=== PATIENT | female | born 1995 ===

== ENCOUNTER 2017-05-19 02:07 | Inpatient (IN) | payer MEDICAID, OTHER ==
--- NOTE | 2017-05-19 02:13 | ED PDOC ---
Arrival/HPI - General Time Seen by Provider: 05/19/17 02:10 Historian: Patient, EMS (Transferred from [facility]) - History of Present Illness Narrative History of Present Illness (Text): 05/19/17 02:10 Ana Leone is a 22 year old female, whose past medical history includes bipolar disorder and depression, who presents to the Emergency department transferred from [facility] for depression and suicidal ideation tonight. 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 Patient denies any homicidal ideation, fever, chills, chest pain, shortness of breath, nausea, vomiting, diarrhea, urinary symptoms, back pain, neck pain, headache, dizziness, or any other complaints. Symptom Onset: Gradual Symptom Course: Unchanged Activities at Onset: Light Context: Home Past Medical History - Provider Review Nursing Documentation Reviewed: Yes Family/Social History - Physician Review Nursing Documentation Reviewed: Yes Family/Social History: Unknown Family HX Allergies/Home Meds Allergies/Adverse Reactions: Allergies No Known Allergies Allergy (Verified 05/19/17 02:10) Home Medications: Home Meds Medication Instructions Recorded Confirmed Risperidone [Risperdal] 0.5 mg PO HS 05/19/17 05/19/17 lamoTRIgine [LaMICtal] 25 mg PO DAILY 05/19/17 05/19/17 Review of Systems - Physician Review All systems were reviewed & negative as marked: Yes - Review of Systems Constitutional: Normal. absent: Fevers Eyes: Normal ENT: Normal Respiratory: Normal. absent: SOB, Cough Cardiovascular: Normal. absent: Chest Pain Gastrointestinal: Normal. absent: Abdominal Pain, Diarrhea, Nausea, Vomiting Genitourinary Female: Normal. absent: Dysuria, Frequency, Hematuria, Urine Output Changes Musculoskeletal: Normal. absent: Back Pain, Neck Pain Skin: Normal. absent: Rash Neurological: Normal. absent: Headache, Dizziness Endocrine: Normal Hemo/Lymphatic: Normal Psychiatric: Depression, Suicidal Ideation Physical Exam Vital Signs Reviewed: Yes Vital Signs Temp Pulse Resp BP Pulse Ox 05/19/17 02:10 98.3 F 94 H 18 117/75 100 Temperature: Afebrile Blood Pressure: Normal Pulse: Regular Respiratory Rate: Normal Appearance: Positive for: Well-Appearing, Non-Toxic, Comfortable Pain Distress: None Mental Status: Positive for: Alert and Oriented X 3 - Systems Exam Head: Present: Atraumatic, Normocephalic Pupils: Present: PERRL Extroacular Muscles: Present: EOMI Conjunctiva: Present: Normal Mouth: Present: Moist Mucous Membranes Neck: Present: Normal Range of Motion Respiratory/Chest: Present: Clear to Auscultation, Good Air Exchange. No: Respiratory Distress, Accessory Muscle Use Cardiovascular: Present: Regular Rate and Rhythm, Normal S1, S2. No: Murmurs Abdomen: Present: Normal Bowel Sounds. No: Tenderness, Distention, Peritoneal Signs Back: Present: Normal Inspection Upper Extremity: Present: Normal Inspection. No: Cyanosis, Edema Lower Extremity: Present: Normal Inspection. No: Edema Neurological: Present: GCS=15, CN II-XII Intact, Speech Normal Skin: Present: Warm, Dry, Normal Color. No: Rashes Psychiatric: Present: Alert, Oriented x 3, Normal Insight, Normal Concentration Medical Decision Making ED Course and Treatment: 05/19/17 02:10 Impression: 22 year old female transferred from [facility] for suicidal ideation and depression. 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 Pt admitted to [facility] for depression, suicidal ideation, and bipolar disorder under Dr. Bettencourt's service. - Scribe Statement The provider has reviewed the documentation as recorded by the Scribe Virginia Cifuentes All medical record entries made by the Scribe were at my direction and personally dictated by me. I have reviewed the chart and agree that the record accurately reflects my personal performance of the history, physical exam, medical decision making, and the department course for this patient. I have also personally directed, reviewed, and agree with the discharge instructions and disposition. Disposition/Present on Arrival - Present on Arrival Any Indicators Present on Arrival: No History of DVT/PE: No History of Uncontrolled Diabetes: No Urinary Catheter: No History of Decub. Ulcer: No History Surgical Site Infection Following: None - Disposition Have Diagnosis and Disposition been Completed?: Yes Diagnosis: Bipolar disorder with depression, Suicidal ideation Disposition: HOSPITALIZED Disposition Time: 02:28 Patient Plan: Admission Condition: STABLE
[2017-05-19 02:20] VITALS: O2SAT 100
[2017-05-19] MEDS ORDERED: Alum-Mag Hydrox-Simethicone Susp (30 mL) PO PRN (04:08)
[2017-05-19] MEDS ORDERED: Magnesium Hydroxide Susp 30 ml UD PO PRN (04:08)
--- NOTE | 2017-05-19 05:08 | PCM.BM ---
<Javier Lynch - Last Filed: 05/19/17 05:05> Treatment Plan Problems - Problems identified on initial assessmt Ineffective Coping Date Initiated: 05/19/17 Time Initiated: 03:05 Assessment reference: NA Status: Active Hopelessness/Helplessness Date Initiated: 05/19/17 Time Initiated: 03:05 Assessment reference: NA Status: Active Feelings of Worthlessness Date Initiated: 05/19/17 Time Initiated: 03:05 Assessment reference: NA Status: Active Body Image Disturbance Date Initiated: 05/19/17 Time Initiated: 03:05 Assessment reference: NA Status: Active Treatment assets and liabiliti Patient Assests: adapts well, cooperative, educated, resourceful, self-reliant, ADL independent, physically healthy, negotiates basic needs, financial stabiity , cognitively intact Patient Liabilities: financial problems, poor support system, relationship conflicts - Milieu Protocol Maintain good personal hygiene: daily Encourage regular showers, daily Remind patient to perform daily oral care, daily Assist patient to perform ADL's Conduct patient checks and document Observation sheet: Q15 minutes Maintain personal safety: every shift Educate patient to report safety concerns to staff, every shift Monitor environment for contraband/sharps Medication safety: Monitor for expected outcome, potential side effects: every shift, Assess barriers to learning: every shift, Assess readiness for medication education: every shift Discharge/Continuing Care - Education Needs Education Needs: Patient Medication, Patient Diagnosis/Disease Process, Patient Coping Skills, Patient Anger Management skills, Patient Community resources, Patient Activities of Daily Living, Patient Nutrition, Patient Health Practices/ Safety, Patient Personal Hygiene/Grooming, Patient Aftercare Safety Plan - Discharge Discharge Criteria: Tolerates medication w/o severe side effects, Free of Suicidal thoughts, Normal sleep pattern, Ability to care for self <Salome Bettencourt - Last Filed: 05/19/17 17:13> - Diagnosis (1) Bipolar disorder with depression Status: Acute Interventions: 05/19/17 17:13 Psychoeducation Psychopharmacology/adjustment of medications as needed/ monitoring possible side effects Monitor blood level of mood stabilizers Evaluate pt on daily basis Compliance with medications and follow up appointments Suicide and homicide risk assessment and prevention, coping strategies, safety plan Relapse prevention Reduction of symptoms Improve functional status Family involvement As outpatient: cognitive behavioral therapy <Verna Peace - Last Filed: 05/20/17 11:26> Family Contact Family contact: Patient agrees to contact Family contact name: Nelson Glynn([phone]) cousin Family contacted how many times per week?: 2 <Kecia Prakash - Last Filed: 05/20/17 15:29>
[2017-05-19 08:37] LABS: GLUCOSE,FASTING 88 mg/dL (65-110); HDL CHOLESTEROL 52 mg/dL (29-60)
[2017-05-19 08:53] LABS: LDL CHOLESTEROL 89 mg/dL (0-129)
[2017-05-19 09:46] LABS: BASO # 0.03 K/mm3 (0.0-2.0); BASO % 0.4 % (0.0-3.0); EOS # 0.1 (0.0-0.7); GRAN # 3.41 (1.4-6.5); GRAN % 48.2 % (50.0-68.0); HEMOGLOBIN 11.7 g/dL (12.0-16.0); LYMPH # 2.8 (1.2-3.4); LYMPH % 39.1 % (22.0-35.0); MEAN CELL VOLUME 94.8 fl (80.0-105.0); MEAN CORPUSCULAR HEMOGLOBIN 30.7 pg (25.0-35.0); MEAN CORPUSCULAR HGB CONC 32.4 g/dl (31.0-37.0); MONO # 0.7 (0.1-0.6); MONO % 10.3 % (1.0-6.0); RBC 3.81 10^6/uL (3.5-6.1); RED CELL DISTRIBUTION WIDTH 14.1 % (11.5-14.5); WHITE BLOOD COUNT 7.1 10^3/ul (4.5-11.0)
[2017-05-19 09:51] LABS: BLOOD UREA NITROGEN 13 mg/dL (7-21); CALCIUM 10.3 mg/dL (8.4-10.5); GFR AFRICAN-AMERICAN > 60; GFR NON-AFRICAN AMERICAN > 60
--- NOTE | 2017-05-19 17:13 | PCM.PSYCH ---
Initial Psychiatric Evaluation - Initial Psychiatric Evaluation Type of Admission: Voluntary Legal Status: Capacity (pt has a capacity to sign consent for treatment) Chief Complaint (in patient's own words): "I was not doing so well, I could not guarantee that I will not harm self, my family suggested me to come to the hospital" Patient's Reaction to Hospitalization: pt was admitted for evaluation of depressive symptoms, inability to function, pt was having suicidal thoughts, thinking to overdose on medications, cut wrists or walk into the traffic, pt denied intent or plan to do so. pt needs further evaluation and stabilization and observation. History of Present Illness and Precipitating Events: shortly pt is 22yo female with self reported h/o Bipolar disorder, denied previous psychiatric admissions, self reported h/o 4xsuicidal attempts, recently was discharged from [facility], attends [employer] ( [employer]), lives in dorm, was sent by her family for evaluation of worsening of depression, possible suicidal ideation either overdose/cut self/walk into the traffic. pt was taking meds sporadically, pt needs further evaluation and stabilization and observation. pt was seen and examined at the dinning area, good personal hygiene, good ADLs, constricted affect, speech was monotonic, low volume, underproductive. pt said she moved from [place] in January 2017, "adjustment was not easy ", pt said initially she staid with her older half sister, pt said "they were treating me like I am their mate", pt said that she moved into dorm later on. pt said she was attending the [facility] program which was for 30 days, pt reported she was not taking medications as prescribed "I was taking Risperdal and Lamictal when needed", pt was educated that she needs to take meds as prescribed, verbalized understanding. pt said that she was feeling "irritable, blunted, everything was like reid", pt said she was not able to get any pleasure, was feeling hopeless and "I had sense that there were no alternatives than just , I was feeling vulnerable, I was afraid that I might harm self, I was thinking to walk into traffic, overdose or cut wrists, I just thought about it but did not planned". pt said that she was feeling hopeless, "I tried to speak to my grandmother, she was very supportive and let my cousin know they both suggested me to come to the hospital". pt also called his mother who resides in [place] and asked her to stay with her, but "she got upset that I called her, she thinks that whenever kid reaches 20, needs to move out and be independent". of note pt requested no phone calls or visitation from cousin and grandmother which seems to be weird because pt said that they are very supportive. will explore more. pt denied using drugs, reported smoking sporadically, drinks "once in a while", pt reported h/o drugs cocaine at age of 19 used after bad brake up with her partner, last use november 2016, snorting. h/o irritability as per pt she was diagnosed with bipolar disorder by [facility], pt was taking lamictal and risprerdal, but was taking it sporadically. Past psych h/o: April 2016, "tried to cut myself but it was not sharp enough , then I thought who will clean up my mess because blood was everywhere, I stopped, cleaned everything and did not tell anyone", at age of 17 pt started to have cutting behavior, cut legs, burn self, self harm, pt also started to have eating problems pt was binge eating and then purging. 1st suicidal attempt 18yo overdose, September 2016 another overdose took ASA, kept it in secret, February 2017 OD on sleeping pills because of poor relationship with sister. medical issues: none family history: pt's twin sister at age of 17 OD valium, grandfather committed suicide by hanging self, father side of the family. 05/19/17 09:30 05/19/17 07:30 Lab Results 05/19/17 09:30: WBC 7.1, RBC 3.81, Hgb 11.7 L, Hct 36.1, MCV 94.8, MCH 30.7, MCHC 32.4, RDW 14.1, Plt Count 255, MPV 10.0, Gran % 48.2 L, Lymph % (Auto) 39.1 H, O'Brien % (Auto) 10.3 H, Eos % (Auto) 2.0, Baso % (Auto) 0.4, Gran # 3.41, Lymph # (Auto) 2.8, O'Brien # (Auto) 0.7 H, Eos # (Auto) 0.1, Baso # (Auto) 0.03 05/19/17 08:00: TSH 3rd Generation 2.87 05/19/17 07:30: RPR Nonreactive 05/19/17 07:30: Sodium 141, Potassium 4.3, Chloride 105, Carbon Dioxide 24, Anion Gap 16, BUN 13, Creatinine 0.5 L, Est GFR ( Amer) > 60, Est GFR ( Non-Af Amer) > 60, Random Glucose 88, Fasting Glucose 88, Calcium 10.3, Triglycerides 62, Cholesterol 159, LDL Cholesterol Direct 89, HDL Cholesterol 52 Vital Signs Temp Pulse Resp BP Pulse Ox 05/19/17 16:00 73 120/83 05/19/17 06:42 98.0 F 105 H 16 121/75 05/19/17 04:21 16 05/19/17 03:05 98 F 81 16 115/79 05/19/17 02:10 98.3 F 94 H 18 117/75 100 Current Medications: Active Medications Generic Name Dose Route Start Last Admin Trade Name Freq PRN Reason Stop Dose Admin Acetaminophen 650 mg 05/19/17 04:08 Tylenol 325mg Tab PO Q4 PRN Pain, Mild (1-3) Al Hydrox/Mg Hydrox/Simethicone 30 ml 05/19/17 04:08 Maalox Plus 30 Ml PO DAILY PRN Upset Stomach Famotidine 20 mg 05/19/17 22:00 Pepcid PO 1000,2200 JORGE Magnesium Hydroxide 30 ml 05/19/17 04:08 Milk Of Magnesia PO DAILY PRN Constipation Ondansetron HCl 2 mg 05/19/17 10:54 Zofran Tab PO Q8H PRN Nausea/Vomiting Past Psychiatric History - Past Psychiatric History Previous Treatment History: None Prior Professional Help: see HPI Prior Psychiatric Treatment: see HPI At what hospital: see HPI Duration: see HPI Nature of Treatment: see HPI Explanation of prior treatment: see HPI History of Abuse: see HPI History of ETOH/Drug Use: see HPI Pertinent Medical Hx (Current Medical&Sleep Prob, Allergies): Allergies Allergy/AdvReac Type Severity Reaction Status Date / Time cat dander Allergy ITCHING Verified 05/19/17 04:06 walnut Allergy ITCHING Verified 05/19/17 04:06 Risperidone [Risperdal] 0.5 mg PO HS 05/19/17 lamoTRIgine [LaMICtal] 25 mg PO DAILY 05/19/17 see HPI Review of Systems - Review of Systems Systems not reviewed;Unavailable: Acuity of Condition - EENT Eyes: As Per HPI Ears: As Per HPI Nose/Mouth/Throat: As Per HPI - Breasts Breasts: As Per HPI - Cardiovascular Cardiovascular: As Per HPI - Respiratory Respiratory: As Per HPI - Gastrointestinal Gastrointestinal: As Per HPI - Genitourinary Genitourinary: As Per HPI - Reproductive: Female Reproductive:Female: As Per HPI - Menstruation Menstruation: As Per HPI - Musculoskeletal Musculoskeletal: As Par HPI - Integumentary Integumentary: As Per HPI - Neurological Neurological: As Per HPI - Psychiatric Psychiatric: As Per HPI - Endocrine Endocrine: As Per HPI - Hematologic/Lymphatic Hematologic: As Per HPI Mental Status Examination - Personal Presentation Personal Presentation: Looks stated age - Affect Affect: Flat - Motor Activity Motor Activity: Psychomotor Retardation - Reliability in Providing Information Reliability in Providing Information: Fair - Speech Speech: Organized - Mood Mood: Depressed - Formal Thought Process Formal Thought Process: No Impairment - Obsessions/Compulsions Obsessions: Yes ("I am obsessed with food, then I purge") - Cognitive Functions Orientation: Person, Place, Situation Sensorium: Alert Attention/Concentration: Easily distracted Abstract Thinking: [place] Estimate of Intelligence: Average Judgement: Intact, as evidence by: Insight regarding need for hospitalization - Risk Risk: Suicidal, Self-mutilation, Diminished functioning - Strength & Assets Inventory Strength & Assets Inventory: Intelligence, Family support, Cooperative - Limitations Limitations: Other (h/o secretive suicidal attempts) DSM 5 DX - DSM 5 DSM 5 Diagnosis: r/o MDD r/o bipolar disorder r/o adjustment disorder with depressed mood r/o eating disorder (?bulimia) r/o borderline personality - Recommended/Plan of Treatment Treatment Recommendations and Plan of Treatment: Milieu/structure/supportive therapy Medical consult appreciated, see medical team note for more detailed info SW consultation for discharge plan and social issues Med management risperdal 0.5mg po bid for mood stabilizaton prozac 10mg po daily for depression and ?borderline personality Family involvement Follow up on labs Will monitor closely Pt was educated about risk/benefits and alternatives of medications, coping strategies (safety plan, suicide prevention), relapse prevention, importance of follow up with psychiatrist and therapist, stay away from drugs/alcohol/smoking Projected ELOS: 7days Prognosis: fair Discharge Plan and Discharge Criteria: Pt will be not depressed or manic, will be more hopeful, will be not psychotic or anxious, will be not having thoughts of harming self or others, will be tolerating medications well, will not have major side effects, will be able to function, will not pose threat to self or others. - Smoking Cessation Smoking Cessation Initiated: No Reason for not providing: pt reported smoking about 1cig a month, counseling provided
--- NOTE | 2017-05-19 18:25 | CP.PCM.CON ---
<Amarjit Silverman - Last Filed: 05/20/17 18:29> History of Present Illness - History of Present Illness History of Present Illness: Chief complaint: Depression, suicidal ideation HPI: Patient is a 22 year old female with a history of depression with suicide attempt and bulimia who presents with complaints from [facility] with complaints of depression. Patient states this is the first time she decided to seek help for her thoughts. She does not currently have any desire to end her life. Denies shortness of breath, chest pain, nausea, vomiting, diarrhea, fevers , chills, abdominal pain,headache, cough. PMD: Denies Psychiatrist: Does not recall name, however office is in [place], [place] Family history: non-contributory Social history: admits to social tobacco, alcohol use, denies illicit drug use Surgical history: denies Allergies: Cat dander, walnut Review of Systems - Constitutional Constitutional: absent: Anorexia, Chills, Headache, Increased Appetite - EENT Eyes: absent: Blurred Vision, Change in Vision Ears: absent: Ear Pain, Tinnitus Nose/Mouth/Throat: absent: Nasal Congestion, Nasal Discharge - Cardiovascular Cardiovascular: absent: Chest Pain, Dyspnea - Respiratory Respiratory: absent: Cough, Dyspnea, Wheezing - Gastrointestinal Gastrointestinal: absent: Abdominal Pain, Nausea, Vomiting - Genitourinary Genitourinary: absent: Dysuria, Nocturia - Musculoskeletal Musculoskeletal: absent: Back Pain, Numbness - Integumentary Integumentary: absent: Change in Hair, Lesions - Neurological Neurological: absent: Dizziness, Tremor - Psychiatric Psychiatric: Depression. absent: Anxiety - Endocrine Endocrine: absent: Fatigue, Polyuria Past Patient History - Past Social History Smoking Status: Light Smoker < 10 Cigarettes Daily - CARDIAC Hx Cardiac Disorders: No - PULMONARY Hx Respiratory Disorders: No - NEUROLOGICAL Hx Neurological Disorder: No - HEENT Hx HEENT Problems: No - RENAL Hx Chronic Kidney Disease: No - ENDOCRINE/METABOLIC Hx Endocrine Disorders: No - HEMATOLOGICAL/ONCOLOGICAL Hx Blood Disorders: No - INTEGUMENTARY Hx Dermatological Problems: No - MUSCULOSKELETAL/RHEUMATOLOGICAL Hx Musculoskeletal Disorders: No - GASTROINTESTINAL Hx Gastrointestinal Disorders: No - GENITOURINARY/GYNECOLOGICAL Hx Genitourinary Disorders: No - PSYCHIATRIC Hx Bipolar Disorder: Yes Hx Depression: Yes Hx Substance Use: Yes (Cocaine last used in 2016) - SURGICAL HISTORY Hx Surgeries: No Meds Allergies/Adverse Reactions: Allergies Allergy/AdvReac Type Severity Reaction Status Date / Time cat dander Allergy ITCHING Verified 05/19/17 04:06 walnut Allergy ITCHING Verified 05/19/17 04:06 - Medications Medications: Current Medications Acetaminophen (Tylenol 325mg Tab) 650 mg PO Q4 PRN PRN Reason: Pain, Mild (1-3) Al Hydrox/Mg Hydrox/Simethicone (Maalox Plus 30 Ml) 30 ml PO DAILY PRN PRN Reason: Upset Stomach Famotidine (Pepcid) 20 mg PO 1000,2200 [facility] Fluoxetine HCl (Prozac) 10 mg PO DAILY [facility] Last Admin: 05/19/17 12:59 Dose: 10 mg Magnesium Hydroxide (Milk Of Magnesia) 30 ml PO DAILY PRN PRN Reason: Constipation Ondansetron HCl (Zofran Tab) 2 mg PO Q8H PRN PRN Reason: Nausea/Vomiting Risperidone (Risperdal Tab) 0.5 mg PO BID JORGE PRN Reason: Protocol Last Admin: 05/19/17 17:16 Dose: 0.5 mg Zaleplon (Sonata) 5 mg PO HS PRN PRN Reason: Insomnia Physical Exam - Constitutional Appears: Non-toxic, No Acute Distress - Head Exam Head Exam: ATRAUMATIC, NORMAL INSPECTION, NORMOCEPHALIC - Eye Exam Eye Exam: EOMI, Normal appearance - ENT Exam ENT Exam: Mucous Membranes Moist, Normal Exam - Neck Exam Neck exam: Positive for: Normal Inspection - Respiratory Exam Respiratory Exam: Clear to Auscultation Bilateral, NORMAL BREATHING PATTERN. absent: Rhonchi, Wheezes - Cardiovascular Exam Cardiovascular Exam: REGULAR RHYTHM, +S1, +S2 - GI/Abdominal Exam GI & Abdominal Exam: Normal Bowel Sounds, Soft - Extremities Exam Extremities exam: Positive for: normal inspection - Back Exam Back exam: NORMAL INSPECTION - Neurological Exam Neurological exam: Alert, CN II-XII Intact, Oriented x3 - Psychiatric Exam Psychiatric exam: Depressed - Skin Skin Exam: Intact, Normal Color, Warm Results - Vital Signs Recent Vital Signs: Last Vital Signs Temp 98.0 F 05/19/17 06:42 Pulse 73 05/19/17 16:00 Resp 16 05/19/17 06:42 BP 120/83 05/19/17 16:00 Pulse Ox 100 05/19/17 02:10 - Labs Result Diagrams: 05/19/17 09:30 05/19/17 07:30 Labs: Laboratory Results - last 24 hr 05/19/17 05/19/17 05/19/17 07:30 07:30 08:00 WBC RBC Hgb Hct MCV MCH MCHC RDW Plt Count MPV Gran % Lymph % (Auto) [place] % (Auto) Eos % (Auto) Baso % (Auto) Gran # Lymph # (Auto) [place] # (Auto) Eos # (Auto) Baso # (Auto) Sodium 141 Potassium 4.3 Chloride 105 Carbon Dioxide 24 Anion Gap 16 BUN 13 Creatinine 0.5 L Est GFR ( Amer) > 60 Est GFR (Non-Af Amer) > 60 Random Glucose 88 Fasting Glucose 88 Calcium 10.3 Triglycerides 62 Cholesterol 159 LDL Cholesterol Direct 89 HDL Cholesterol 52 TSH 3rd Generation 2.87 RPR Nonreactive 05/19/17 09:30 WBC 7.1 RBC 3.81 Hgb 11.7 L Hct 36.1 MCV 94.8 MCH 30.7 MCHC 32.4 RDW 14.1 Plt Count 255 MPV 10.0 Gran % 48.2 L Lymph % (Auto) 39.1 H [place] % (Auto) 10.3 H Eos % (Auto) 2.0 Baso % (Auto) 0.4 Gran # 3.41 Lymph # (Auto) 2.8 [place] # (Auto) 0.7 H Eos # (Auto) 0.1 Baso # (Auto) 0.03 Sodium Potassium Chloride Carbon Dioxide Anion Gap BUN Creatinine Est GFR ( Amer) Est GFR (Non-Af Amer) Random Glucose Fasting Glucose Calcium Triglycerides Cholesterol LDL Cholesterol Direct HDL Cholesterol TSH 3rd Generation RPR Assessment & Plan - Assessment and Plan (Free Text) Assessment: 22 year old female with bulimia nervosa, depression, and suicidal ideation. Plan: Medical clearance - patient is cleared from a medical standpoint. - no lab abnormalities. - Patient counseled on effects bulimia may have on body regarding electrolytes, dental hygiene. - [employer] consulted. - patient advised to follow up with primary care physician within 1 week of discharge. <Lazaro Carter - Last Filed: 05/20/17 18:38> Meds - Medications Medications: Current Medications Acetaminophen (Tylenol 325mg Tab) 650 mg PO Q4 PRN PRN Reason: Pain, Mild (1-3) Al Hydrox/Mg Hydrox/Simethicone (Maalox Plus 30 Ml) 30 ml PO DAILY PRN PRN Reason: Upset Stomach Famotidine (Pepcid) 20 mg PO 1000,2200 J[facility] Last Admin: 05/20/17 10:04 Dose: 20 mg Fluoxetine HCl (Prozac) 20 mg PO DAILY JOR[facility] Magnesium Hydroxide (Milk Of Magnesia) 30 ml PO DAILY PRN PRN Reason: Constipation Ondansetron HCl (Zofran Tab) 2 mg PO Q8H PRN PRN Reason: Nausea/Vomiting Risperidone (Risperdal Tab) 0.5 mg PO BID JORGE PRN Reason: Protocol Last Admin: 05/20/17 16:23 Dose: 0.5 mg Zaleplon (Sonata) 5 mg PO HS PRN PRN Reason: Insomnia Last Admin: 05/19/17 21:26 Dose: 5 mg Results - Vital Signs Recent Vital Signs: Last Vital Signs Temp 98.1 F 05/20/17 07:35 Pulse 75 05/20/17 15:00 Resp 20 05/20/17 07:35 BP 104/71 05/20/17 15:00 Pulse Ox 100 05/19/17 02:10 - Labs Result Diagrams: 05/19/17 09:30 05/19/17 07:30 Attending/Attestation - Attestation I have personally seen and examined this patient.: Yes I have fully participated in the care of the patient.: Yes I have reviewed all pertinent clinical information: Yes Notes (Text): 05/20/17 18:37 Attending note; Patient seen and examined with resident in psychiatric floor. Patient is a 22-year-old female admitted with suicidal ideation. Currently patient is stable. Labs reviewed. History of bulimia. Denies any vomiting. Dietitian evaluation requested. Patient is strongly advised to follow-up with PMD of choice upon discharge. Needs close psychiatric follow-up. Patient is medically stable. Please reconsult as needed. Thank you for the courtesy of this consultation.
--- NOTE | 2017-05-20 15:21 | PCM.PYCHPN ---
Psychiatric Progress Note - Psychiatric Progress Note Patient seen today, length of contact: 30 minutes Patient Chief Complaint: "I M feeling little bit better" Problems Identified/Issues Discussed: Suicide/ homicide prevention, past psychiatric h/o, current psychiatric symptoms , medical problems, risk/benefits and alternatives of medications, medications compliance, coping strategies, substance abuse h/o, relapse prevention, importance of follow up with psychiatrist and therapist, discharge plan. Medical Problems: medical consult appreciated, see notes for more detailed information Diagnostic Results: 05/19/17 09:30 05/19/17 07:30 Lab Results 05/19/17 09:30: WBC 7.1, RBC 3.81, Hgb 11.7 L, Hct 36.1, MCV 94.8, MCH 30.7, MCHC 32.4, RDW 14.1, Plt Count 255, MPV 10.0, Gran % 48.2 L, Lymph % (Auto) 39.1 H, [place] % (Auto) 10.3 H, Eos % (Auto) 2.0, Baso % (Auto) 0.4, Gran # 3.41, Lymph # (Auto) 2.8, [place] # (Auto) 0.7 H, Eos # (Auto) 0.1, Baso # (Auto) 0.03 05/19/17 08:00: TSH 3rd Generation 2.87 05/19/17 07:30: RPR Nonreactive 05/19/17 07:30: Sodium 141, Potassium 4.3, Chloride 105, Carbon Dioxide 24, Anion Gap 16, BUN 13, Creatinine 0.5 L, Est GFR ( Amer) > 60, Est GFR ( Non-Af Amer) > 60, Random Glucose 88, Fasting Glucose 88, Calcium 10.3, Triglycerides 62, Cholesterol 159, LDL Cholesterol Direct 89, HDL Cholesterol 52 Vital Signs Temp Pulse Resp BP Pulse Ox 05/20/17 07:35 98.1 F 85 20 111/68 05/19/17 16:00 73 120/83 05/19/17 06:42 98.0 F 105 H 16 121/75 05/19/17 04:21 16 05/19/17 03:05 98 F 81 16 115/79 05/19/17 02:10 98.3 F 94 H 18 117/75 100 DSM 5 Symptoms Update: shortly pt is 22yo female with self reported h/o Bipolar disorder, denied previous psychiatric admissions, self reported h/o 4xsuicidal attempts, recently was discharged from [facility] for 30 days, attends [employer] ( [employer] [facility] [facility]), lives in dorm, was sent by her family for evaluation of worsening of depression, possible suicidal ideation either overdose/cut self/walk into the traffic. pt was taking meds sporadically, pt needs further evaluation and stabilization and observation. pt was seen and examined at the treatment team meeting, patient presented to be depressed, with ADLs, anxious. Patient reported that she feels "little bit better", patient reported that her sleep improved, at the same time patient reported that she still continues feeling depressed, hopeless. No eating problems, patient did not have any binge eating or purging behavior while she is with us. Patient tolerates medications well, no side effects observed or reported, aims 0 , no EPS. DSM 5 Diagnosis: r/o MDD r/o bipolar disorder r/o adjustment disorder with depressed mood r/o eating disorder (?bulimia) r/o borderline personality Medication Change: Yes (Prozac was increased to 20 mg) Medical Record Reviewed: Yes Consults ordered or reviewed: medical consult appreciated Mental Status Examination - Cognitive Function Orientation: Person, Place, Situation Memory: Intact Attention: Poor Concentration: Poor Association: WNL Fund of Knowledge: WNL - Mood Mood: Depressed, Anxious - Affect Affect: Constricted - Speech Speech: Appropriate - Formal Thought Process Formal Thought Process: No Impairment - Suicidal Ideation Suicidal Ideation: No - Homicidal Ideation Homicidal Ideation: No Goal/Treatment Plan - Goal/Treatment Plan Need for Continued Stay: Remain at risks for inpatient hospitalization, Severe depression anxiety, Discharge may exacerbated symptoms, Severe functional impairment Progress Toward Problem(s) and Goals/Treatment Plan: Milieu/structure/supportive therapy Medical consult appreciated, see medical team note for more detailed info SW consultation for discharge plan and social issues Med management risperdal 0.5mg po bid for mood stabilizaton prozac 20mg po daily for depression and ?borderline personality Family involvement Follow up on labs Will monitor closely Pt was educated about risk/benefits and alternatives of medications, coping strategies (safety plan, suicide prevention), relapse prevention, importance of follow up with psychiatrist and therapist, stay away from drugs/alcohol/smoking
--- NOTE | 2017-05-21 09:20 | PCM.PYCHPN ---
Psychiatric Progress Note - Psychiatric Progress Note Patient seen today, length of contact: 25 minutes Patient Chief Complaint: depressed and hopeless Problems Identified/Issues Discussed: I reviewed assessment and recent notes. I met with patient at bedside. She is fairly groomed and cooperative. Oriented x3 and focus is good. Patient indicates that she is feeling better but still remains depressed and hopeless. Feels safe on the unit and denies SI/HI. She denies perceptual disturbance and thought process is coherent. Responses are relevant to questioning. Staff notes indicate that patient is visible on the unit and goes to groups however she is minimally social with other patients. Appears withdrawn and depressed. There were no behavioral issues overnight Diagnostic Results: r/o MDD r/o bipolar disorder r/o adjustment disorder with depressed mood r/o eating disorder (?bulimia) r/o borderline personality Medication Change: Yes (Prozac was increased to 20 mg) Medical Record Reviewed: Yes Mental Status Examination - Cognitive Function Orientation: Person, Place, Situation Memory: Intact Attention: Poor Concentration: Poor Association: WNL Fund of Knowledge: WNL - Mood Mood: Depressed, Anxious - Affect Affect: Constricted - Speech Speech: Appropriate - Formal Thought Process Formal Thought Process: No Impairment - Suicidal Ideation Suicidal Ideation: No - Homicidal Ideation Homicidal Ideation: No Goal/Treatment Plan - Goal/Treatment Plan Need for Continued Stay: Remain at risks for inpatient hospitalization, Severe depression anxiety, Discharge may exacerbated symptoms, Severe functional impairment Progress Toward Problem(s) and Goals/Treatment Plan: c/w current tx and plan No new weekend labs thus far Vitals reviewed and noted below: Selected Entries 05/21/17 08:17 Temperature 97.5 F L Pulse Rate 81 Respiratory 18 Rate Blood Pressure 99/59 L
--- NOTE | 2017-05-22 09:18 | PCM.PYCHPN ---
Psychiatric Progress Note - Psychiatric Progress Note Patient seen today, length of contact: 25 minutes Patient Chief Complaint: depressed and hopeless Problems Identified/Issues Discussed: I reviewed recent notes and met with patient at bedside. She is fairly groomed and cooperative. Oriented x3 and focus is good. Patient Indicates that she is " I am fine but still depressed". Denies hopelessness, SI/HI. She continues to deny perceptual disturbance and thought process is coherent. Responses are relevant to questioning. Staff notes indicate that patient is visible on the unit and goes to groups however she is minimally social with other patients. Appears withdrawn and depressed. There were no behavioral issues over the weekend. Diagnostic Results: r/o MDD r/o bipolar disorder r/o adjustment disorder with depressed mood r/o eating disorder (?bulimia) r/o borderline personality Medication Change: Yes (Prozac was increased to 20 mg) Medical Record Reviewed: Yes Mental Status Examination - Cognitive Function Orientation: Person, Place, Situation Memory: Intact Attention: Poor Concentration: Poor Association: WNL Fund of Knowledge: WNL - Mood Mood: Depressed, Anxious - Affect Affect: Constricted - Speech Speech: Appropriate - Formal Thought Process Formal Thought Process: No Impairment - Suicidal Ideation Suicidal Ideation: No - Homicidal Ideation Homicidal Ideation: No Goal/Treatment Plan - Goal/Treatment Plan Need for Continued Stay: Remain at risks for inpatient hospitalization, Severe depression anxiety, Discharge may exacerbated symptoms, Severe functional impairment Progress Toward Problem(s) and Goals/Treatment Plan: c/w current tx and plan No new weekend labs Vitals reviewed and noted below: 05/22/17 07:39 Temperature 98.1 F Pulse Rate 98 H Respiratory 20 Rate Blood Pressure 105/74
--- NOTE | 2017-05-23 15:46 | PCM.PYCHPN ---
Psychiatric Progress Note - Psychiatric Progress Note Patient seen today, length of contact: 30min Patient Chief Complaint: "I am not planning to go back to college, first I want to start feeling better" Problems Identified/Issues Discussed: Suicide/ homicide prevention, past psychiatric h/o, current psychiatric symptoms , medical problems, risk/benefits and alternatives of medications, medications compliance, coping strategies, substance abuse h/o, relapse prevention, importance of follow up with psychiatrist and therapist, discharge plan. Medical Problems: medical consult appreciated, see notes for more detailed information Diagnostic Results: 05/19/17 09:30 05/19/17 07:30 Lab Results 05/19/17 09:30: WBC 7.1, RBC 3.81, Hgb 11.7 L, Hct 36.1, MCV 94.8, MCH 30.7, MCHC 32.4, RDW 14.1, Plt Count 255, MPV 10.0, Gran % 48.2 L, Lymph % (Auto) 39.1 H, [place] % (Auto) 10.3 H, Eos % (Auto) 2.0, Baso % (Auto) 0.4, Gran # 3.41, Lymph # (Auto) 2.8, [place] # (Auto) 0.7 H, Eos # (Auto) 0.1, Baso # (Auto) 0.03 05/19/17 08:00: TSH 3rd Generation 2.87 05/19/17 07:30: RPR Nonreactive 05/19/17 07:30: Sodium 141, Potassium 4.3, Chloride 105, Carbon Dioxide 24, Anion Gap 16, BUN 13, Creatinine 0.5 L, Est GFR ( Amer) > 60, Est GFR ( Non-Af Amer) > 60, Random Glucose 88, Fasting Glucose 88, Calcium 10.3, Triglycerides 62, Cholesterol 159, LDL Cholesterol Direct 89, HDL Cholesterol 52 Vital Signs Temp Pulse Resp BP Pulse Ox 05/20/17 07:35 98.1 F 85 20 111/68 05/19/17 16:00 73 120/83 05/19/17 06:42 98.0 F 105 H 16 121/75 05/19/17 04:21 16 05/19/17 03:05 98 F 81 16 115/79 05/19/17 02:10 98.3 F 94 H 18 117/75 100 Temp Pulse Resp BP Pulse Ox 97.7 F 98 H 20 118/73 100 05/23/17 07:19 05/23/17 07:19 05/23/17 07:19 05/23/17 07:19 05/19/17 02:10 DSM 5 Symptoms Update: shortly pt is 22yo female with self reported h/o Bipolar disorder, denied previous psychiatric admissions, self reported h/o 4xsuicidal attempts, recently was discharged from [facility] for 30 days, attends [employer] ( [employer]), lives in dorm, was sent by her family for evaluation of worsening of depression, possible suicidal ideation either overdose/cut self/walk into the traffic. pt was taking meds sporadically, pt needs further evaluation and stabilization and observation. pt was seen and examined at the treatment team meeting, patient presented to be less depressed, with good ADLs, less anxious. Patient reported that she feels "better, I think medications are working well", pt said that her family is going to help her, pt said her grandmother and her aunt are willing to accept her and help her now. Pt said she is not planning to go to the college because she wants to concentrate on her mental problems. pt denied thoughts of harming self or others. pt denied psychotic symptoms, anxiety is under control. pt has good appetite and sleep "I was able to sleep with no meds", pt said that her mind is not racing and meds seems to be effective. Patient tolerates medications well, no side effects observed or reported, aims 0 , no EPS. DSM 5 Diagnosis: r/o MDD r/o bipolar disorder r/o adjustment disorder with depressed mood r/o eating disorder (?bulimia) r/o borderline personality Medication Change: No Medical Record Reviewed: Yes Consults ordered or reviewed: medical consult appreciated Mental Status Examination - Cognitive Function Orientation: Person, Place, Situation Memory: Intact Attention: Poor (some improvement) Concentration: Poor (some improvement) Association: WNL Fund of Knowledge: WNL - Mood Mood: Depressed ("I feel better"), Anxious ("I feel okay") - Affect Affect: Constricted (but reactive, mood congruent) - Speech Speech: Appropriate - Formal Thought Process Formal Thought Process: No Impairment - Suicidal Ideation Suicidal Ideation: No - Homicidal Ideation Homicidal Ideation: No Goal/Treatment Plan - Goal/Treatment Plan Need for Continued Stay: Remain at risks for inpatient hospitalization, Severe depression anxiety, Discharge may exacerbated symptoms, Severe functional impairment Progress Toward Problem(s) and Goals/Treatment Plan: Milieu/structure/supportive therapy Medical consult appreciated, see medical team note for more detailed info SW consultation for discharge plan and social issues Med management risperdal 0.5mg po bid for mood stabilizaton prozac 20mg po daily for depression and ?borderline personality Family involvement Follow up on labs Will monitor closely Pt was educated about risk/benefits and alternatives of medications, coping strategies (safety plan, suicide prevention), relapse prevention, importance of follow up with psychiatrist and therapist, stay away from drugs/alcohol/smoking Estimated Date of D/C: 05/24/17
[2017-05-24 06:39] VITALS: BP 129/75; PULSE 100; RESP 16; TEMP 98.2
--- NOTE | 2017-05-24 09:20 | PCM.PYCHDC ---
Mental Status Examination - Mental Status Examination Orientation: Person, Place, Situation, Time Memory: Intact Mood: Neutral Affect: Broad (and mood congruent) Speech: Appropriate Attention: WNL Concentration: WNL Association: WNL Fund of Knowledge: WNL Formal Thought Process: No Impairment Description of patient's judgement and insight: Pt has improved insight into mental and medical illness, pt was compliant with medications and unit rules and regulations, pt was going to groups, was calm, cooperative, socially appropriate, no behavioral incidents, no agitation, no aggression. Psychotic Thoughts and Behaviors: Pt denied v/a/t hallucinations, denied paranoid ideations, pt does not appear to be psychotic, and thought process is goal directed. Suicidal Ideation: No Current Homicidal Ideation?: No Plan: pt adamantly denied thoughts of harming self or others denied intent or plan. Discharge Summary - Discharge Note Reason for Hospitalization: pt was admitted for evaluation of depressive symptoms, inability to function, pt was having suicidal thoughts, thinking to overdose on medications, cut wrists or walk into the traffic, pt denied intent or plan to do so. pt needed further evaluation, meds adjustment, stabilization. Psychiatric History (includes Medical, Family, Personal Hx): see HPI Laboratory Data: 05/19/17 09:30 05/19/17 07:30 Lab Results 05/19/17 09:30: WBC 7.1, RBC 3.81, Hgb 11.7 L, Hct 36.1, MCV 94.8, MCH 30.7, MCHC 32.4, RDW 14.1, Plt Count 255, MPV 10.0, Gran % 48.2 L, Lymph % (Auto) 39.1 H, Falls % (Auto) 10.3 H, Eos % (Auto) 2.0, Baso % (Auto) 0.4, Gran # 3.41, Lymph # (Auto) 2.8, Falls # (Auto) 0.7 H, Eos # (Auto) 0.1, Baso # (Auto) 0.03 05/19/17 08:00: TSH 3rd Generation 2.87 05/19/17 07:30: RPR Nonreactive 05/19/17 07:30: Sodium 141, Potassium 4.3, Chloride 105, Carbon Dioxide 24, Anion Gap 16, BUN 13, Creatinine 0.5 L, Est GFR ( Amer) > 60, Est GFR ( Non-Af Amer) > 60, Random Glucose 88, Fasting Glucose 88, Calcium 10.3, Triglycerides 62, Cholesterol 159, LDL Cholesterol Direct 89, HDL Cholesterol 52 Vital Signs Temp Pulse Resp BP Pulse Ox 05/24/17 06:38 98.2 F 100 H 16 129/75 05/23/17 16:00 75 104/62 05/23/17 07:19 97.7 F 98 H 20 118/73 05/22/17 21:52 81 108/64 05/22/17 07:39 98.1 F 98 H 20 105/74 05/21/17 15:00 85 106/67 05/21/17 08:17 97.5 F L 81 18 99/59 L 05/20/17 15:00 75 104/71 05/20/17 07:35 98.1 F 85 20 111/68 05/19/17 16:00 73 120/83 05/19/17 06:42 98.0 F 105 H 16 121/75 05/19/17 04:21 16 05/19/17 03:05 98 F 81 16 115/79 05/19/17 02:10 98.3 F 94 H 18 117/75 100 Consultations:: List each consultation separately and include: 1. Reason for request. 2. Findings. 3. Follow-up Consultations: medical consult appreciated please see notes for more detailed information Summary of Hospital Course include:: 1. Description of specific treatment plan utilized for patients during their course of treatmen. 2. Summarize the time- course for resolution of acute symptoms and/or regressed behaviors. 3. Describe issues identified and worked on during hospitalization. 4. Describe medication utilized. 5. Describe medical problems identified and treated. 6. Reassessment of suicide risk Summary of Hospital Course: shortly pt is 22yo female with self reported h/o Bipolar disorder, denied previous psychiatric admissions, self reported h/o 4xsuicidal attempts, recently was discharged from [facility] for [facility], attends [employer] ( [employer] lives in dorm, was sent by her family for evaluation of worsening of depression, possible suicidal ideation either overdose/cut self/walk into the traffic. pt was taking meds sporadically, pt needs further evaluation and stabilization and observation. at the time of admission pt presented to be depressed, hopeless, had thoughts of harming self, but no intent or plan. pt said she moved from [place] in January 2017, "adjustment was not easy ", pt said initially she staid with her older half sister, pt said "they were treating me like I am their mate", pt said that she moved into dorm later on. pt said she was attending the [employer] program which was for 30 days, pt reported she was not taking medications as prescribed "I was taking Risperdal and Lamictal when needed", pt was educated that she needs to take meds as prescribed, verbalized understanding. pt said that she was feeling "irritable, blunted, everything was like reid", pt said she was not able to get any pleasure, was feeling hopeless and "I had sense that there were no alternatives than just , I was feeling vulnerable, I was afraid that I might harm self, I was thinking to walk into traffic, overdose or cut wrists, I just thought about it but did not planned". pt said that she was feeling hopeless, "I tried to speak to my grandmother, she was very supportive and let my cousin know they both suggested me to come to the hospital". pt also called his mother who resides in [place] and asked her to stay with her, but "she got upset that I called her, she thinks that whenever kid reaches 20, needs to move out and be independent". of note pt requested no phone calls or visitation from cousin and grandmother which seems to be weird because pt said that they are very supportive. will explore more. pt denied using drugs, reported smoking sporadically, drinks "once in a while", pt reported h/o drugs cocaine at age of 19 used after bad brake up with her partner, last use november 2016, snorting. h/o irritability as per pt she was diagnosed with bipolar disorder by [facility], pt was taking lamictal and risprerdal, but was taking it sporadically. Past psych h/o: April 2016, "tried to cut myself but it was not sharp enough , then I thought who will clean up my mess because blood was everywhere, I stopped, cleaned everything and did not tell anyone", at age of 17 pt started to have cutting behavior, cut legs, burn self, self harm, pt also started to have eating problems pt was binge eating and then purging. 1st suicidal attempt 18yo overdose, September 2016 another overdose took ASA, kept it in secret, February 2017 OD on sleeping pills because of poor relationship with sister. medical issues: none family history: pt's twin sister at age of 15 OD valium, grandfather committed suicide by hanging self, father side of the family. 05/19/17 09:30 05/19/17 07:30 Lab Results 05/19/17 09:30: WBC 7.1, RBC 3.81, Hgb 11.7 L, Hct 36.1, MCV 94.8, MCH 30.7, MCHC 32.4, RDW 14.1, Plt Count 255, MPV 10.0, Gran % 48.2 L, Lymph % (Auto) 39.1 H, Falls % (Auto) 10.3 H, Eos % (Auto) 2.0, Baso % (Auto) 0.4, Gran # 3.41, Lymph # (Auto) 2.8, Falls # (Auto) 0.7 H, Eos # (Auto) 0.1, Baso # (Auto) 0.03 05/19/17 08:00: TSH 3rd Generation 2.87 05/19/17 07:30: RPR Nonreactive 05/19/17 07:30: Sodium 141, Potassium 4.3, Chloride 105, Carbon Dioxide 24, Anion Gap 16, BUN 13, Creatinine 0.5 L, Est GFR ( Amer) > 60, Est GFR ( Non-Af Amer) > 60, Random Glucose 88, Fasting Glucose 88, Calcium 10.3, Triglycerides 62, Cholesterol 159, LDL Cholesterol Direct 89, HDL Cholesterol 52 Vital Signs Temp Pulse Resp BP Pulse Ox 05/19/17 16:00 73 120/83 05/19/17 06:42 98.0 F 105 H 16 121/75 05/19/17 04:21 16 05/19/17 03:05 98 F 81 16 115/79 05/19/17 02:10 98.3 F 94 H 18 117/75 100 pt was stabilized on the following medications: prozac 20mg po daily for depression, anxiety risperdal 0.5mg po bid for mood stabilization pt tolerated meds well, no side effects observed or reported, AIMS 0, no EPS. pt's family wants to help her, pt will stay with her grandmother and her aunt, pt does not want to go back to college, wants to feel better first. Over the course of this hospitalization pt was attending groups, pt also had medication management, had therapeutic milieu. Overall pt improved significantly, pt's affect became brighter, pt was less depressed, has realistic future oriented plans, pt also does not appear to be psychotic, or anxious, pt was socially appropriate, no behavioral issues, pts insight improved as well and soon pt deemed to be ready for discharge. At the time of the discharge pt denied been depressed, denied thoughts of harming self or others, denied psychotic symptoms, and pt does not appeared to be psychotic, denied been anxious, pt is not in imminent danger to self or others, will be following up at IOP, information about follow up appointment, time and address provided to the pt, it is patient responsibility to follow up with outpatient clinic, PMD as well as specialists (see SW note for more detailed information). In case pt will need to obtain results of studies pending at discharge pt was provided with contact information of Psychiatric Inpatient unit [phone] as well as Medical Record Department [phone]. pt does not use any drugs, does not smoke pt was provided with prescriptions for all of medications (please see medication reconciliation form) Pt was educated about safety plan in case of worsening of symptoms or in case of suicidal or homicidal ideation call 911 or go to the nearest ER, also was educated to take meds as prescribed and stay away from drugs, pt verbalized understanding. - Diagnosis (1) Bipolar disorder with depression Current Visit: Yes Status: Acute Priority: Medium - Final Diagnosis (DSM 5) Condition upon Discharge: GOOD Disposition: HOME/ ROUTINE Follow-up Treatment Plan: At the time of the discharge pt denied been depressed, denied thoughts of harming self or others, denied psychotic symptoms, and pt does not appeared to be psychotic, denied been anxious, pt is not in imminent danger to self or others, will be following up at IOP, information about follow up appointment, time and address provided to the pt, it is patient responsibility to follow up with outpatient clinic, PMD as well as specialists (see SW note for more detailed information). In case pt will need to obtain results of studies pending at discharge pt was provided with contact information of Psychiatric Inpatient unit [phone] as well as Medical Record Department [phone]. pt does not use any drugs, does not smoke pt was provided with prescriptions for all of medications (please see medication reconciliation form) Pt was educated about safety plan in case of worsening of symptoms or in case of suicidal or homicidal ideation call 911 or go to the nearest ER, also was educated to take meds as prescribed and stay away from drugs, pt verbalized understanding. Prescriptions/Medication Reconciliation: FLUoxetine [Fluoxetine HCl] 20 mg PO DAILY #14 cap risperiDONE [RisperDAL Tab] 0.5 mg PO BID #30 tab - Smoking Cessation Smoking Cessation Medication prescribed: No Reason for not providing: pt denied smoking - Antipsychotic Medications Pt discharged on 2 or more routine antipsychotic medications: No
== END 2017-05-24 13:24 | disposition home or self-care (01) | DRG 885 ==
LOC: ED 02:07 → ERH 02:16 → PSYC 03:05
PROVIDERS: ADMIT Psychiatry & Neurology Psychiatry; ATTEND Psychiatry & Neurology Psychiatry
DX: F31.9 Bipolar disorder, unspecified (principal); F50.2 Bulimia nervosa; R45.851 Suicidal ideations; F60.3 Borderline personality disorder; F17.210 Nicotine dependence, cigarettes, uncomplicated; Z91.018 Allergy to other foods; Z91.048 Other nonmedicinal substance allergy status